=== PATIENT | female | born 1980 | race Caucasian/White ===

== ENCOUNTER → 2017-04-05 09:22 | Outpatient (REF) | payer BC, SELFPAY ==
[2017-04-05 12:11] LABS: Basophils # 0.1 K/mm3 (0-0.2); Basophils % 0.8 % (0.1-2.0); Eosinophils # 0.1 K/mm3 (0.0-0.4); Eosinophils % 0.9 % (0.1-12.0); Hemoglobin 13.7 g/dL (12.2-16.2); Lymphocytes # 2.8 K/mm3 (0.7-4.5); Lymphocytes % 34.3 K/mm3 (10-50); Mean Corpuscular HGB Conc 31.1 g/dL (31.8-35.4); Mean Platelet Volume 10.1 fl (7.4-10.4); Monocytes # 0.4 K/mm3 (0.1-1.0); Monocytes % 4.2 % (1.7-9.3); Neutrophils # 4.9 K/mm3 (1.8-7.8); Neutrophils % 59.8 % (37.0-80.0); Platelet Count 364 K/mm3 (142-424); Red Blood Count 4.89 M/mm3 (4.20-5.40); Red Cell Distribution Width 12.7 % (11.5-17.5); White Blood Count 8.2 K/mm3 (4.8-10.8)
[2017-04-05 12:17] LABS: Alanine Aminotransferase 32 U/L (12-78); Albumin Level 3.8 gm/dL (3.4-5.0); Albumin/Globulin Ratio 1.1 (1.1-1.8); Alkaline Phosphatase 56 U/L (46-116); Anion Gap 14.9 mEq/L (5-15); Aspartate Amino Transferase 21 U/L (15-37); Bilirubin,Total 0.5 mg/dL (0.2-1.0); Blood Urea Nitrogen 9 mg/dL (7-18); Calcium 9.3 mg/dL (8.5-10.1); Carbon Dioxide 23 mmol/L (21.0-32.0); Chloride 103 mmol/L (98-107); Chol/HDL Ratio 4.1 (1-3.5); Cholesterol 227 mg/dL (140-200); Creatinine,Serum 0.83 mg/dL (0.55-1.02); Estimated Glomerular Filt Rate > 60 ml/min (>60); Free T4 (Free Thyroxine) 1.11 ng/dl (0.76-1.46); GFR (African American) > 60 ML/MIN (>60); Globulin 3.4 gm/dl (1.3-3.2); Glucose 117 mg/dL (74-106); HDL Cholesterol 55 mg/dL (29-89); LDL Cholesterol 131 mg/dL (0-130); Potassium 4.9 mmoL/L (3.5-5.1); Sodium 136 mmol/L (136-145); Thyroid Stimulating Hormone 2.08 uIU/ml (0.358-3.740); Total Protein,Serum 7.2 gm/dL (6.4-8.2); Triglycerides 206 mg/dL (30-200); VLDL Cholesterol 41 mg/dL (0-40)
[2017-04-05 14:28] LABS: Hemoglobin A1C 7.4 % (0.0-7.0)
[2017-04-06 22:14] LABS: HIV Screen 4th Generation wRfx Non Reactive (Non Reactive); Microalbumin, Urine 7.2 ug/mL (Not Estab.)
== END ==
LOC: LAB 09:22
PROVIDERS: Visit Provider Nurse Practitioner Family
DX: R53.83 Other fatigue (principal); E11.9 Type 2 diabetes mellitus without complications; Z79.4 Long term (current) use of insulin; N92.6 Irregular menstruation, unspecified; Z20.6 Contact with and (suspected) exposure to human immunodeficiency virus [HIV]
CPT/HCPCS: 80053; 80061; 82043; 83036; 84439; 84443; 85025; 86703; G0432

== ENCOUNTER → 2017-08-08 13:30 | Outpatient (REF) | payer BC, SELFPAY ==
[2017-08-08 19:27] LABS: Hemoglobin A1C 7.2 % (0.0-7.0)
[2017-08-11 06:26] LABS: HIV Screen 4th Generation wRfx Non Reactive (Non Reactive); Vitamin D 25 Hydroxy 24.9 ng/mL (30.0-100.0)
== END ==
LOC: LAB 13:30
PROVIDERS: Visit Provider Nurse Practitioner Family
DX: Z20.6 Contact with and (suspected) exposure to human immunodeficiency virus [HIV] (principal); E11.9 Type 2 diabetes mellitus without complications; R53.83 Other fatigue
CPT/HCPCS: 82652; 83036; 86703; G0432

== ENCOUNTER → 2017-10-10 08:59 | Outpatient (REF) | payer BC, SELFPAY ==
[2017-10-10 13:25] LABS: Basophils % 0.6 % (0.1-2.0); Eosinophils # 0.2 K/mm3 (0.0-0.4); Eosinophils % 2.3 % (0.1-12.0); Hematocrit 41.4 % (37.0-47.0); Hemoglobin 13.4 g/dL (12.2-16.2); Lymphocytes # 2.7 K/mm3 (0.7-4.5); Lymphocytes % 40.8 K/mm3 (10-50); Mean Corpuscular HGB Conc 32.3 g/dL (31.8-35.4); Mean Corpuscular Hemoglobin 28.2 pg (27.0-31.2); Mean Corpuscular Volume 87.3 fl (81-99); Monocytes # 0.4 K/mm3 (0.1-1.0); Neutrophils # 3.3 K/mm3 (1.8-7.8); Neutrophils % 50.3 % (37.0-80.0); Platelet Count 271 K/mm3 (142-424); Red Blood Count 4.75 M/mm3 (4.20-5.40); Red Cell Distribution Width 13.1 % (11.5-17.5); White Blood Count 6.6 K/mm3 (4.8-10.8)
[2017-10-10 13:56] LABS: Alanine Aminotransferase 51 U/L (12-78); Albumin Level 3.5 gm/dL (3.4-5.0); Albumin/Globulin Ratio 1.1 (1.1-1.8); Alkaline Phosphatase 62 U/L (46-116); Anion Gap 14.3 mEq/L (5-15); Aspartate Amino Transferase 32 U/L (15-37); Bilirubin,Total 0.4 mg/dL (0.2-1.0); Blood Urea Nitrogen 10 mg/dL (7-18); Carbon Dioxide 24 mmol/L (21.0-32.0); Chloride 106 mmol/L (98-107); Chol/HDL Ratio 4.3 (1-3.5); Cholesterol 183 mg/dL (140-200); Creatinine,Serum 0.75 mg/dL (0.55-1.02); Estimated Glomerular Filt Rate 86 ml/min (>60); Free T4 (Free Thyroxine) 0.94 ng/dl (0.76-1.46); GFR (African American) 104 ML/MIN (>60); Globulin 3.2 gm/dl (1.3-3.2); Glucose 151 mg/dL (74-106); HDL Cholesterol 43 mg/dL (29-89); LDL Cholesterol 92 mg/dL (0-130); Potassium 4.3 mmoL/L (3.5-5.1); Sodium 140 mmol/L (136-145); Thyroid Stimulating Hormone 3.25 uIU/ml (0.358-3.740); Total Protein,Serum 6.7 gm/dL (6.4-8.2); Triglycerides 240 mg/dL (30-200); VLDL Cholesterol 48 mg/dL (0-40)
[2017-10-10 14:02] LABS: Hemoglobin A1C 7.4 % (0.0-7.0)
[2017-10-11 10:20] LABS: Microalbumin, Urine <3.0 ug/mL (Not Estab.)
== END ==
LOC: LAB 08:59
PROVIDERS: Visit Provider Nurse Practitioner Family
DX: E11.9 Type 2 diabetes mellitus without complications (principal)
CPT/HCPCS: 80053; 80061; 82043; 82570; 82652; 83036; 84439; 84443; 85025

== ENCOUNTER → 2018-01-14 10:28 | Outpatient (CLI) | payer BC, SELFPAY ==
[2018-01-14 12:44] LABS: Alanine Aminotransferase 73 U/L (12-78); Albumin Level 3.5 gm/dL (3.4-5.0); Albumin/Globulin Ratio 1.1 (1.1-1.8); Alkaline Phosphatase 63 U/L (46-116); Anion Gap 11.2 mEq/L (5-15); Aspartate Amino Transferase 60 U/L (15-37); Bilirubin,Total 0.6 mg/dL (0.2-1.0); Blood Urea Nitrogen 11 mg/dL (7-18); Calcium 9.1 mg/dL (8.5-10.1); Carbon Dioxide 29 mmol/L (21.0-32.0); Chloride 104 mmol/L (98-107); Chol/HDL Ratio 4.1 (1-3.5); Cholesterol 186 mg/dL (140-200); Creatinine,Serum 0.82 mg/dL (0.55-1.02); Estimated Glomerular Filt Rate 78 ml/min (>60); GFR (African American) 94 ML/MIN (>60); Globulin 3.2 gm/dl (1.3-3.2); Glucose 148 mg/dL (74-106); HDL Cholesterol 45 mg/dL (29-89); LDL Cholesterol 97 mg/dL (0-130); Potassium 4.2 mmoL/L (3.5-5.1); Sodium 140 mmol/L (136-145); Total Protein,Serum 6.7 gm/dL (6.4-8.2); Triglycerides 220 mg/dL (30-200); VLDL Cholesterol 44 mg/dL (0-40)
[2018-01-14 12:47] LABS: Hemoglobin A1C 7.5 % (0.0-7.0)
[2018-01-15 13:56] LABS: HIV Screen 4th Generation wRfx Non Reactive (Non Reactive)
== END ==
PROVIDERS: PCP Nurse Practitioner Family; Visit Provider Nurse Practitioner Family
DX: E11.9 Type 2 diabetes mellitus without complications (principal); Z20.6 Contact with and (suspected) exposure to human immunodeficiency virus [HIV]
CPT/HCPCS: 36415; 80053; 80061; 83036; 86703; G0432

== ENCOUNTER → 2018-05-30 14:12 | Outpatient (CLI) | payer BC, SELFPAY ==
[2018-05-30 15:19] LABS: Alanine Aminotransferase 63 U/L (12-78); Albumin Level 3.8 gm/dL (3.4-5.0); Albumin/Globulin Ratio 1.1 (1.1-1.8); Alkaline Phosphatase 78 U/L (46-116); Anion Gap 15.2 mEq/L (5-15); Aspartate Amino Transferase 45 U/L (15-37); Bilirubin,Total 0.4 mg/dL (0.2-1.0); Blood Urea Nitrogen 9 mg/dL (7-18); Calcium 9.3 mg/dL (8.5-10.1); Carbon Dioxide 26 mmol/L (21.0-32.0); Chloride 103 mmol/L (98-107); Chol/HDL Ratio 4.4 (1-3.5); Cholesterol 195 mg/dL (140-200); Creatinine,Serum 0.82 mg/dL (0.55-1.02); Estimated Glomerular Filt Rate 78 ml/min (>60); GFR (African American) 94 ML/MIN (>60); Globulin 3.5 gm/dl (1.3-3.2); Glucose 147 mg/dL (74-106); HDL Cholesterol 44 mg/dL (29-89); LDL Cholesterol 90 mg/dL (0-130); Potassium 4.2 mmoL/L (3.5-5.1); Sodium 140 mmol/L (136-145); T4 (Thyroxine) 10.3 ug/dl (4.7-13.3); Thyroid Stimulating Hormone 2.55 uIU/ml (0.358-3.740); Total Protein,Serum 7.3 gm/dL (6.4-8.2); Triglycerides 305 mg/dL (30-200); VLDL Cholesterol 61 mg/dL (0-40)
[2018-05-30 15:37] LABS: Basophils # 0.1 K/mm3 (0-0.2); Basophils % 0.9 % (0.1-2.0); Eosinophils # 0.3 K/mm3 (0.0-0.4); Eosinophils % 3.9 % (0.1-12.0); Hematocrit 41.7 % (37.0-47.0); Lymphocytes # 2.8 K/mm3 (0.7-4.5); Lymphocytes % 35.1 % (10-50); Mean Corpuscular HGB Conc 33.7 g/dL (31.8-35.4); Mean Corpuscular Volume 86.1 fl (81-99); Mean Platelet Volume 9.1 fl (7.4-10.4); Monocytes # 0.4 K/mm3 (0.1-1.0); Monocytes % 4.7 % (1.7-9.3); Neutrophils # 4.4 K/mm3 (1.8-7.8); Neutrophils % 55.5 % (37.0-80.0); Platelet Count 261 K/mm3 (142-424); Red Blood Count 4.84 M/mm3 (4.20-5.40); Red Cell Distribution Width 13.2 % (11.5-17.5); White Blood Count 7.9 K/mm3 (4.8-10.8)
[2018-05-30 18:23] LABS: Hemoglobin A1C 7.9 % (0.0-7.0)
[2018-05-30 19:34] LABS: HCG Qualitative, Serum Negative (Negative)
[2018-06-01 06:43] LABS: Creatinine, Urine 284.4 mg/dL (Not Estab.); Microalbumin, Urine 13.1 ug/mL (Not Estab.)
[2018-06-02 13:24] LABS: HIV Screen 4th Generation wRfx Non Reactive (Non Reactive)
== END ==
PROVIDERS: Visit Provider Nurse Practitioner Family
DX: E11.9 Type 2 diabetes mellitus without complications (principal); Z20.2 Contact with and (suspected) exposure to infections with a predominantly sexual mode of transmission; N92.6 Irregular menstruation, unspecified; Z79.4 Long term (current) use of insulin
CPT/HCPCS: 80053; 80061; 82043; 82570; 82652; 83036; 84436; 84443; 84703; 85025; 86703; G0432

== ENCOUNTER → 2018-11-03 13:59 | Outpatient (CLI) | payer BC, SELFPAY ==
[2018-11-05 11:13] LABS: HIV Screen 4th Generation wRfx Non Reactive (Non Reactive)
== END ==
PROVIDERS: Visit Provider Nurse Practitioner Family
DX: Z20.6 Contact with and (suspected) exposure to human immunodeficiency virus [HIV] (principal)
CPT/HCPCS: 86703; G0432

== ENCOUNTER → 2018-12-10 16:17 | Outpatient (CLI) | payer BC, SELFPAY ==
--- NOTE | 2018-12-10 16:18 | MM_ITS ---
PROCEDURE: MM DIG SCREENING MAMM BI W/CAD Patient Age:38Y CLINICAL INDICATION: Screening Baseline screening mammogram. No hormones but no new complaints.. Family history: Maternal aunt with breast cancer COMPARISON: No exams were available for comparison TECHNIQUE: Standard CC and MLO images were obtained. R2 CAD reviewed. FINDINGS: This is a baseline study with no previous for comparison. No dominant or suspicious mass in either breast.. Small scattered punctate calcifications appear benign and can be followed safely. Area of mild asymmetry of the left breast which seems to dissipate moving from cc to MLO view. No focal area of significant concern. Bilateral follow-up 1 year recommended IMPRESSION: No areas of significant concern on this baseline mammogram. Bilateral follow-up 1 year recommended and encouraged to further confirm baseline. BI-RAD Category: 1 Negative FOLLOW-UP: 1YR 1 Year Follow-up (A letter has been sent to the patient regarding results of the study.) Dictated by: Hunter Robledo MD 12/15/2018 10:51 Electronically signed by Hunter Robledo MD in [place] 12/15/2018 10:51
== END ==
PROVIDERS: PCP Nurse Practitioner Family; Visit Provider Nurse Practitioner Family
DX: Z12.39 Encounter for other screening for malignant neoplasm of breast (principal)
CPT/HCPCS: 77067

== ENCOUNTER → 2019-05-21 13:35 | Outpatient (CLI) | payer BC, SELFPAY ==
[2019-05-21 14:24] LABS: Basophils # 0.1 K/mm3 (0-0.2); Eosinophils # 0.2 K/mm3 (0.0-0.4); Eosinophils % 2.6 % (0.1-12.0); Hematocrit 41.5 % (37.0-47.0); Hemoglobin 13.4 g/dL (12.2-16.2); Lymphocytes # 2.5 K/mm3 (0.7-4.5); Lymphocytes % 39.2 % (10-50); Mean Corpuscular HGB Conc 32.4 g/dL (31.8-35.4); Mean Corpuscular Hemoglobin 28.6 pg (27.0-31.2); Mean Corpuscular Volume 88.3 fl (81-99); Mean Platelet Volume 9.1 fl (7.4-10.4); Monocytes # 0.3 K/mm3 (0.1-1.0); Monocytes % 4.9 % (1.7-9.3); Neutrophils # 3.3 K/mm3 (1.8-7.8); Neutrophils % 52.4 % (37.0-80.0); Platelet Count 301 K/mm3 (142-424); Red Blood Count 4.69 M/mm3 (4.20-5.40); White Blood Count 6.4 K/mm3 (4.8-10.8)
[2019-05-21 23:32] LABS: Hemoglobin A1C 8.3 % (4.0-6.0)
[2019-05-21 23:36] LABS: Chloride 103 mmol/L (98-107); Potassium 4.7 mmoL/L (3.5-5.1); Sodium 134 mmol/L (136-145)
[2019-05-21 23:38] LABS: Alanine Aminotransferase 50 U/L (12-78); Aspartate Amino Transferase 48 U/L (14-36); Blood Urea Nitrogen 9 mg/dl (7-17); Estimated Glomerular Filt Rate 111 ml/min (>60); GFR (African American) 134 ML/MIN (>60)
[2019-05-21 23:39] LABS: Albumin Level 4.2 g/dl (3.5-5.0); Albumin/Globulin Ratio 1.5 (1.1-1.8); Alkaline Phosphatase 78 U/L (38-126); Anion Gap 12.7 mEq/L (5-15); Bilirubin,Total 0.3 mg/dl (0.2-1.3); Calcium 9.6 mg/dl (8.4-10.2); Carbon Dioxide 23 mmol/L (22.0-30.0); Chol/HDL Ratio 4.7 (1-3.5); Cholesterol 206 mg/dl (140-200); Globulin 2.8 g/dL (1.3-3.2); Glucose 200 mg/dl (74-100); HDL Cholesterol 44 mg/dl (40-60); Triglycerides 370 mg/dl (30-150); VLDL Cholesterol 74 mg/dL (0-40)
[2019-05-21 23:50] LABS: Direct LDL Cholesterol 108.52 mg/dL (100-129)
[2019-05-21 23:57] LABS: T4 (Thyroxine) 11.6 ug/dl (5.53-11.0)
[2019-05-22 00:10] LABS: Thyroid Stimulating Hormone 1.91 uIU/mL (0.465-4.68)
[2019-05-22 12:03] LABS: Vitamin D 25 Hydroxy 46.7 ng/mL (30.0-100.0)
== END ==
PROVIDERS: Visit Provider Physician Assistant
DX: E11.9 Type 2 diabetes mellitus without complications (principal); Z79.4 Long term (current) use of insulin
CPT/HCPCS: 80053; 80061; 82652; 83036; 84436; 84443; 85025

== ENCOUNTER → 2019-06-04 10:10 | Outpatient (CLI) | payer BC, SELFPAY ==
[2019-06-04 16:01] LABS: HCG Qualitative, Serum Negative (Negative)
[2019-06-05 10:31] LABS: HIV Screen 4th Generation wRfx Non Reactive (Non Reactive)
== END ==
PROVIDERS: Visit Provider Physician Assistant
DX: Z20.6 Contact with and (suspected) exposure to human immunodeficiency virus [HIV] (principal); N91.2 Amenorrhea, unspecified
CPT/HCPCS: 36415; 84703; 86703; G0432

== ENCOUNTER → 2019-07-30 11:09 | Outpatient (CLI) | payer BC, SELFPAY ==
[2019-08-01 20:02] LABS: Covid-19 Nasal PCR Sendout Lex NOT DETECTED
--- NOTE | 2019-08-02 11:22 | PC.NURSE ---
Patient notified of negative COVID-19 test results via phone.
== END ==
PROVIDERS: Visit Provider Internal Medicine Adolescent Medicine
DX: Z03.818 Encounter for observation for suspected exposure to other biological agents ruled out (principal)
CPT/HCPCS: U0003

== ENCOUNTER → 2019-09-08 16:49 | Outpatient (CLI) | payer BC, SELFPAY ==
[2019-09-08 17:12] LABS: Basophils # 0.1 K/mm3 (0-0.2); Basophils % 0.8 % (0.1-2.0); Eosinophils # 0.2 K/mm3 (0.0-0.4); Eosinophils % 2.4 % (0.1-12.0); Hematocrit 40.6 % (37.0-47.0); Lymphocytes # 2.6 K/mm3 (0.7-4.5); Lymphocytes % 33.8 % (10-50); Mean Corpuscular HGB Conc 34.3 g/dL (31.8-35.4); Mean Corpuscular Volume 87.3 fl (81-99); Mean Platelet Volume 9.1 fl (7.4-10.4); Monocytes # 0.3 K/mm3 (0.1-1.0); Monocytes % 4.4 % (1.7-9.3); Neutrophils # 4.5 K/mm3 (1.8-7.8); Neutrophils % 58.6 % (37.0-80.0); Platelet Count 284 K/mm3 (142-424); Red Blood Count 4.66 M/mm3 (4.20-5.40); Red Cell Distribution Width 13.6 % (11.5-17.5); White Blood Count 7.7 K/mm3 (4.8-10.8)
[2019-09-08 19:24] LABS: Chloride 102 mmol/L (98-107); Potassium 4.5 mmoL/L (3.5-5.1); Sodium 133 mmol/L (136-145)
[2019-09-08 19:26] LABS: Blood Urea Nitrogen 11 mg/dl (7-17); Estimated Glomerular Filt Rate 93 ml/min (>60); GFR (African American) 112 ML/MIN (>60)
[2019-09-08 19:27] LABS: Alanine Aminotransferase 78 U/L (12-78); Albumin Level 4.2 g/dl (3.5-5.0); Albumin/Globulin Ratio 1.4 (1.1-1.8); Alkaline Phosphatase 96 U/L (38-126); Anion Gap 11.5 mEq/L (5-15); Aspartate Amino Transferase 94 U/L (14-36); Bilirubin,Total 0.7 mg/dl (0.2-1.3); Calcium 9.8 mg/dl (8.4-10.2); Carbon Dioxide 24 mmol/L (22.0-30.0); Globulin 3.1 g/dL (1.3-3.2); Glucose 199 mg/dl (74-100); Total Protein,Serum 7.3 g/dl (6.3-8.2)
[2019-09-08 19:32] LABS: Erythrocyte Sedimentation Rate 92 mm/hr (0-20)
[2019-09-08 19:33] LABS: C-Reactive Protein 3.2 mg/L (0-4)
[2019-09-09 11:18] LABS: Hemoglobin A1C 8.7 % (4.0-6.0)
[2019-09-10 10:14] LABS: Hep A Ab, IgM Negative (Negative); Hepatitis B Core Antibody IgM Negative (Negative); Hepatitis B Surface Antigen Negative (Negative)
[2019-09-10 11:14] LABS: Hepatitis C Antibody <0.1 s/co ratio (0.0-0.9)
[2019-09-10 13:11] LABS: Anti-Centromere B Antibodies <0.2 AI (0.0-0.9); Anti-Jo-1 <0.2 AI (0.0-0.9); Anti-Smith Antibody <0.2 AI (0.0-0.9); Antichromatin Antibodies <0.2 AI (0.0-0.9); Antiscleroderma-70 Antibodies <0.2 AI (0.0-0.9); RNP Antibodies 0.2 AI (0.0-0.9); Sjogren's Anti-SS-A <0.2 AI (0.0-0.9); Sjogren's Anti-SS-B <0.2 AI (0.0-0.9)
[2019-09-10 13:38] LABS: Anti-DNA (DS) Ab Qn <1 IU/mL (0-9)
[2019-09-10 14:57] LABS: RA Latex Turbid. 10.7 IU/mL (0.0-13.9)
[2019-09-12 06:50] LABS: Anti-Cyclic Citrullinated Pept 4 units (0-19)
== END ==
PROVIDERS: Visit Provider Physician Assistant
DX: M25.50 Pain in unspecified joint (principal); E11.9 Type 2 diabetes mellitus without complications
CPT/HCPCS: 80053; 80074; 83036; 85025; 85651; 86140; 86200; 86225; 86235; 86431

== ENCOUNTER → 2019-09-14 16:24 | Outpatient (CLI) | payer BC, SELFPAY ==
--- NOTE | 2019-09-14 16:45 | XR_ITS ---
PROCEDURE: XR HAND LT MIN 3V CLINICAL INDICATION: Heberden's nodes Pain COMPARISON: No exams were available for comparison FINDINGS: No fracture or dislocation. No lytic or blastic change. There is normal mineralization. The joint spaces are well-preserved. No significant degenerative/arthritic changes. No erosive changes evident. Other findings:None. IMPRESSION: Negative left hand Dictated by: Zen Weiner MD 09/16/2019 12:01 Electronically signed by Zen Weiner MD in [place] 09/16/2019 12:01
--- NOTE | 2019-09-14 16:45 | XR_ITS ---
PROCEDURE: XR HAND RT MIN 3V CLINICAL INDICATION: Heberdens nodes Pain COMPARISON: No exams were available for comparison FINDINGS: No fracture or dislocation. No lytic or blastic change. There is normal mineralization. The joint spaces are well-preserved. No significant degenerative/arthritic changes. No erosive changes evident. Other findings:None. IMPRESSION: Negative right hand Dictated by: Zen Weiner MD 09/16/2019 12:02 Electronically signed by Zen Weiner MD in [place] 09/16/2019 12:02
== END ==
PROVIDERS: PCP Physician Assistant; Visit Provider Physician Assistant
DX: M15.1 Heberden's nodes (with arthropathy) (principal)
CPT/HCPCS: 73130

== ENCOUNTER → 2019-10-21 16:53 | Outpatient (CLI) | payer BC, SELFPAY ==
[2019-10-21 17:35] LABS: Chloride 100 mmol/L (98-107); Potassium 4.4 mmoL/L (3.5-5.1); Sodium 135 mmol/L (136-145)
[2019-10-21 17:38] LABS: Anion Gap 14.4 mEq/L (5-15); Blood Urea Nitrogen 9 mg/dl (7-17); Calcium 9.4 mg/dl (8.4-10.2); Carbon Dioxide 25 mmol/L (22.0-30.0); Estimated Glomerular Filt Rate 110 ml/min (>60); GFR (African American) 133 ML/MIN (>60); Glucose 135 mg/dl (74-100)
== END ==
PROVIDERS: Visit Provider Physician Assistant
DX: E11.9 Type 2 diabetes mellitus without complications (principal); Z79.4 Long term (current) use of insulin
CPT/HCPCS: 80048; 83036

== ENCOUNTER → 2020-04-21 09:55 | Outpatient (CLI) | payer BC, SELFPAY ==
--- NOTE | 2020-04-21 09:56 | MM_ITS ---
PROCEDURE: MM DIG SCREENING MAMM BI W/CAD Digital Breast Tomosynthesis Included CLINICAL INDICATION: Routine Screening Mammogram There is a history of breast cancer in the patient's maternal aunt. COMPARISON: MG MM DIG SCREENING MAMM BI W/CAD from 12/10/2018 TECHNIQUE: Standard CC and MLO images and 3D Tomosynthesis was obtained. R2 CAD reviewed. FINDINGS: Moderate diffuse fibroglandular densities are seen throughout both breasts. There are couple of benign-appearing microcalcifications right breast. There is no suspicious lesion in either breast and no suspicious microcalcifications. IMPRESSION: Fibrofatty parenchyma with no suspicious lesions seen BI-RAD Category: 2 Benign Finding(s) FOLLOW-UP: 1YR 1 Year Follow-up (A letter has been sent to the patient regarding results of the study.) Dictated by: Dr. Barak Estevez MD 04/26/2020 08:36 Dr. Barak Estevez MD in [place] 04/26/2020 08:36
== END ==
PROVIDERS: PCP Nurse Practitioner Family; Visit Provider Obstetrics & Gynecology
DX: Z12.31 Encounter for screening mammogram for malignant neoplasm of breast (principal)
CPT/HCPCS: 77063; 77067

== ENCOUNTER → 2021-07-06 10:19 | Outpatient (CLI) | payer BC, SELFPAY ==
--- NOTE | 2021-07-06 10:20 | MM_ITS ---
PROCEDURE INFORMATION: Exam: MG Bilateral Screening 3D Mammography Exam date and time: 07/06/2021 10:28 AM Age: 40 years old Clinical indication: Screening examination; Family history of breast cancer in aunt TECHNIQUE: Imaging protocol: Bilateral Screening tomosynthesis and 2D mammography including computer-aided detection (CAD) when performed. COMPARISON: 1. MG MM DIG SCREENING MAMM BI W/CAD 04/21/2020 10:10 AM 2. MG MM DIG SCREENING MAMM BI W/CAD 12/10/2018 4:25 PM FINDINGS: MAMMOGRAPHY: Breast composition: The breast tissue is composed of scattered areas of fibroglandular density. Mass: None. Architectural distortion: None. Calcifications: No suspicious calcifications. Asymmetric density: None. Skin thickening: None. Axillary adenopathy: None. IMPRESSION: No mammographic evidence of malignancy. Annual screening is recommended unless otherwise clinically indicated. ASSESSMENT: BI-RADS Category 1: Negative
== END ==
PROVIDERS: PCP Nurse Practitioner Family; Visit Provider Obstetrics & Gynecology
DX: Z12.31 Encounter for screening mammogram for malignant neoplasm of breast (principal)
CPT/HCPCS: 77063; 77067

== ENCOUNTER → 2022-06-12 10:37 | Outpatient (CLI) | payer BC, SELFPAY ==
[2022-06-12 11:43] LABS: Hemoglobin A1C 6.1 % (4.0-6.0)
[2022-06-21 23:30] LABS: Fructosamine 235
== END ==
PROVIDERS: PCP Nurse Practitioner Family; Visit Provider Obstetrics & Gynecology
DX: Z34.90 Encounter for supervision of normal pregnancy, unspecified, unspecified trimester (principal); E11.9 Type 2 diabetes mellitus without complications
CPT/HCPCS: 36415; 82985; 83036; 87086

== ENCOUNTER → 2022-06-13 14:42 | Outpatient (CLI) | payer BC, MEDICAID, SELFPAY ==
[2022-06-13 16:08] LABS: HCG,Quantitative 9062 mIU/ml (0-5.42)
== END ==
PROVIDERS: PCP Nurse Practitioner Family; Visit Provider Obstetrics & Gynecology
DX: O20.9 Hemorrhage in early pregnancy, unspecified (principal)
CPT/HCPCS: 36415; 84702

== ENCOUNTER → 2022-06-15 16:12 | Outpatient (CLI) | payer BC, MEDICAID, SELFPAY ==
[2022-06-15 17:44] LABS: HCG,Quantitative 8951 mIU/ml (0-5.42)
== END ==
PROVIDERS: PCP Nurse Practitioner Family; Visit Provider Obstetrics & Gynecology
DX: O20.9 Hemorrhage in early pregnancy, unspecified (principal)
CPT/HCPCS: 36415; 84702

== ENCOUNTER → 2022-06-18 13:46 | Outpatient (CLI) | payer BC, MEDICAID, SELFPAY ==
--- NOTE | 2022-06-18 13:55 | US_ITS ---
FINAL REPORT CLINICAL HISTORY: for dates FINDINGS: Sonographic images of the pelvis were obtained. There is a 5.4 mm pole corresponding to 6 week 3 day gestation. No tone is identified. Yolk sac may be partially collapsed. There is a corpus luteum cyst on the left measures up to 1.8 cm. IMPRESSION: Findings consistent with 6 week 3 day gestation but no cardiac activity is identified. Recommend quantitative beta HCG and follow-up ultrasound. Reviewed, Interpreted and Dictated by Hung Joy MD Transcribed by Taylor De Souza Authenticated and [facility]
[2022-06-18 15:16] LABS: HCG,Quantitative 9588 mIU/ml (0-5.42)
== END ==
PROVIDERS: PCP Nurse Practitioner Family; Visit Provider Obstetrics & Gynecology
DX: O00.90 Unspecified ectopic pregnancy without intrauterine pregnancy (principal); O20.9 Hemorrhage in early pregnancy, unspecified
CPT/HCPCS: 36415; 76801; 84702

== ENCOUNTER → 2022-06-20 14:29 | Outpatient (CLI) | payer BC, SELFPAY ==
[2022-06-20 15:43] LABS: Basophils % 0.6 % (0.1-2.0); Eosinophils # 0.2 K/mm3 (0.0-0.4); Eosinophils % 2.8 % (0.1-12.0); Hematocrit 40.2 % (37.0-47.0); Hemoglobin 13.2 g/dL (12.2-16.2); Lymphocytes # 1.7 K/mm3 (0.7-4.5); Mean Corpuscular HGB Conc 32.9 g/dL (31.8-35.4); Mean Corpuscular Hemoglobin 30.8 pg (27.0-31.2); Mean Corpuscular Volume 93.5 fl (81-99); Mean Platelet Volume 9.2 fl (7.4-10.4); Monocytes # 0.6 K/mm3 (0.1-1.0); Neutrophils # 4.2 K/mm3 (1.8-7.8); Neutrophils % 62.6 % (37.0-80.0); Platelet Count 289 K/mm3 (142-424); Red Cell Distribution Width 13.1 % (11.5-17.5); White Blood Count 6.7 K/mm3 (4.8-10.8)
[2022-06-20 16:39] LABS: HCG,Quantitative 8653 mIU/ml (0-5.42)
[2022-06-22 08:56] LABS: Rubella Antibodies, IgG 1.98 index (Immune >0.99)
[2022-06-22 10:41] LABS: HIV Screen 4th Generation wRfx Non Reactive (Non Reactive); Rapid Plasma Reagin Ab Titer Non Reactive (NonRea<1:1)
[2022-06-23 01:10] LABS: Hepatitis B Surface Antigen Negative
[2022-06-23 01:11] LABS: Hepatitis C Antibody Non Reactive
[2022-06-23 01:12] LABS: Progesterone 6.2
== END ==
PROVIDERS: PCP Nurse Practitioner Family; Visit Provider Obstetrics & Gynecology
DX: O20.9 Hemorrhage in early pregnancy, unspecified (principal); Z34.90 Encounter for supervision of normal pregnancy, unspecified, unspecified trimester
CPT/HCPCS: 36415; 84144; 84702; 85025; 86593; 86703; 86762; 86850; 87340; 87380; G0432

== ENCOUNTER → 2022-06-25 09:06 | Outpatient (CLI) | payer BC, SELFPAY ==
--- NOTE | 2022-06-25 09:07 | US_ITS ---
FINAL REPORT TECHNIQUE: Sonographic images of the pelvis were obtained. CLINICAL HISTORY: 1 week repeat, no cardiac activity COMPARISON: Ultrasound performed 06/18/2022 FINDINGS: There is a gestational sac within the endometrial cavity with a pole. Nadine-rump length measures 5.4 mm corresponding with 6 weeks 3 days gestation. No cardiac activity is identified. There is a small yolk sac with abnormal appearance. Mean gestational sac measures 1.7 cm consistent with 6 weeks 4 days which is essentially unchanged in size. Nabothian cysts are seen in the cervix. Cervix is otherwise intact. The left ovary measures 2.8 x 2.6 x 2.2 cm with a 1.9 cm cyst. Blood flow is present. The right ovary measures 1.6 x 2.2 x 1.5 cm. Blood flow is present. IMPRESSION: Gestational sac with pole. No cardiac activity identified and no change in size of gestational sac in 7 days time most consistent with failed . Reviewed, Interpreted and Dictated by Suzy Heard MD Transcribed by Gabrielle Felix Authenticated and [facility]
[2022-06-25 12:26] LABS: Basophils # 0.1 K/mm3 (0-0.2); Basophils % 0.8 % (0.1-2.0); Eosinophils # 0.2 K/mm3 (0.0-0.4); Eosinophils % 2.6 % (0.1-12.0); Hematocrit 42.9 % (37.0-47.0); Hemoglobin 13.9 g/dL (12.2-16.2); Lymphocytes # 2.4 K/mm3 (0.7-4.5); Lymphocytes % 29.4 % (10-50); Mean Corpuscular HGB Conc 32.5 g/dL (31.8-35.4); Mean Corpuscular Volume 92.5 fl (81-99); Mean Platelet Volume 8.7 fl (7.4-10.4); Monocytes # 0.4 K/mm3 (0.1-1.0); Monocytes % 4.7 % (1.7-9.3); Neutrophils # 5.1 K/mm3 (1.8-7.8); Neutrophils % 62.4 % (37.0-80.0); Platelet Count 335 K/mm3 (142-424); Red Blood Count 4.64 M/mm3 (4.20-5.40); White Blood Count 8.1 K/mm3 (4.8-10.8)
[2022-06-25 12:58] LABS: Chloride 103 mmol/L (98-107); Potassium 4.2 mmoL/L (3.5-5.1); Sodium 136 mmol/L (136-145)
[2022-06-25 13:00] LABS: Blood Urea Nitrogen 8 mg/dl (7-17); Estimated Glomerular Filt Rate 109 ml/min (>60); GFR (African American) 132 ML/MIN (>60)
[2022-06-25 13:01] LABS: Alanine Aminotransferase 24 U/L (12-78); Albumin Level 4.3 g/dl (3.5-5.0); Albumin/Globulin Ratio 1.5 (1.1-1.8); Alkaline Phosphatase 68 U/L (38-126); Anion Gap 11.2 mEq/L (5-15); Aspartate Amino Transferase 29 U/L (14-36); Bilirubin,Total 0.4 mg/dl (0.2-1.3); Calcium 9.3 mg/dl (8.4-10.2); Carbon Dioxide 26 mmol/L (22.0-30.0); Globulin 2.9 g/dL (1.3-3.2); Glucose 115 mg/dl (74-100); Total Protein,Serum 7.2 g/dl (6.3-8.2)
== END ==
PROVIDERS: PCP Nurse Practitioner Family; Visit Provider Obstetrics & Gynecology
DX: O20.9 Hemorrhage in early pregnancy, unspecified (principal); O02.1 Missed abortion
CPT/HCPCS: 36415; 76801; 80053; 85025; 86850

== ENCOUNTER 2022-06-26 07:19 | Day surgery (SDC) | payer BC, MEDICAID, SELFPAY ==
[2022-06-26] VITALS (14 sets, daily range): BP systolic 127–148; BP diastolic 69–87; PULSE 72–93; RESP 16–18; TEMP 36.1–43; O2SAT 92–99; BMI 32.0
--- NOTE | 2022-06-26 | US_ITS ---
FINAL REPORT CLINICAL HISTORY: PATIENT IN OR FOR a D & C Limited study in OR COMPARISON: 06/25/2022 FINDINGS: Ultrasound was provided in the OR during D & C. Limited images of the uterus were obtained. Fluid is seen within the endometrial canal. Free fluid is identified. No pole is seen. IMPRESSION: Limited intraoperative ultrasound. Reviewed, Interpreted and Dictated by Suzy Heard MD Transcribed by Taylor De Souza Authenticated and [facility]
[2022-06-26 07:53] LABS: POC Glucose,Bedside 111 (70-110)
--- NOTE | 2022-06-26 08:21 | EXP.ANES.CKL ---
[facility] Disclaimer: The information contained in this section may have been updated after the patient was seen, as this information can be updated by other users. 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 (Updated 06/26/22 @ 07:53 by Kristy Alonso RN) Allergies Arthritis Asthma Blood transfusion declined because patient is [employer] Bronchitis Diabetes Eczema History of COVID-19 History of gastroesophageal reflux (GERD) Hypertension IBS (irritable bowel syndrome) Migraine Pancreatitis Surgical History Hx of section Hx of cholecystectomy Family History (Updated 06/26/22 @ 07:53 by Kristy Alonso RN) Mother Cancer Father Diabetes Pacemaker Social History (Updated 06/26/22 @ 07:54 by Kristy Alonso RN) Smoking Status: Never smoker alcohol intake: never substance use type: denies use current occupational status: unemployed Travel in the last 8 weeks: None household members: spouse and children housing: house caffeine: No [facility] Anesthesia Checklist Patient Identification Patient Identification: Arm Band and Verbal (Name & ) Structural Data Admitted From: Home Planned Operative Procedure/s: Hystroscopy D&C Verified Documents: Surgical Consent NPO Status Verified Time NPO: 00:00 Chart Verification Results Verified: CBC and BMP Additional verifications Anesthesia Reactions: No Hx Blood Transfusions: No Blood Transfusion Reaction: No Airway Assessment C-Spine Mobility Assessed: Yes TMJ Mobility Assessed: Yes Dentition: Good Dentition Neurological Assessment Level of Consciousness: Awake, Alert and Appropriate Anesthesia Plan Anesthesia Risk discussed: Yes ASA Class: III Anesthesia Type: General
--- NOTE | 2022-06-26 09:51 | SUR.OPER ---
0940- Family updated in waiting room by joey Camacho and consented for hysteroscopy. 0945- Per 's verbal order, Salena with radiology in OR for ultrasound.
--- NOTE | 2022-06-26 10:19 | EXP.ANES.CKL ---
[facility] Disclaimer: The information contained in this section may have been updated after the patient was seen, as this information can be updated by other users. 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 (Updated 06/26/22 @ 07:53 by Kristy Alonso RN) Allergies Arthritis Asthma Blood transfusion declined because patient is [employer] Bronchitis Diabetes Eczema History of COVID-19 History of gastroesophageal reflux (GERD) Hypertension IBS (irritable bowel syndrome) Migraine Pancreatitis Surgical History Hx of section Hx of cholecystectomy Family History (Updated 06/26/22 @ 07:53 by Kristy Alonso RN) Mother Cancer Father Diabetes Pacemaker Social History (Updated 06/26/22 @ 08:39 by Kristy Alonso RN) Smoking Status: Never smoker alcohol intake: never substance use type: denies use current occupational status: unemployed Travel in the last 8 weeks: None household members: spouse and children housing: house caffeine: No [facility] Anesthesia Checklist Patient Identification Patient Identification: Arm Band and Verbal (Name & ) Structural Data Admitted From: Home Planned Operative Procedure/s: Hystroscopy D&C Verified Documents: Surgical Consent NPO Status Verified Time NPO: 00:00 Chart Verification Results Verified: CBC and BMP Additional verifications Anesthesia Reactions: No Hx Blood Transfusions: No Blood Transfusion Reaction: No Airway Assessment C-Spine Mobility Assessed: Yes TMJ Mobility Assessed: Yes Dentition: Good Dentition Neurological Assessment Level of Consciousness: Awake, Alert and Appropriate Anesthesia Plan Anesthesia Risk discussed: Yes ASA Class: III Anesthesia Type: General
--- NOTE | 2022-06-26 10:20 | EXP.ANES.I ---
[facility] Anesthesia Record Part I Anesthesia Record I Intake, IV Amount: 1,000 Estimated blood loss (mL): 10 Urine output (mL): 0 SaO2: 92 Pulse Rate: 72 Respiratory Rate: 16 Temperature: 98.4 F Patient is:: Drowsy and Stable Stable to PACU at:: 10:18
[2022-06-26 10:28] LABS: POC Glucose,Bedside 120 (70-110)
--- NOTE | 2022-06-26 10:32 | EXP.OP.NOTE ---
Date of procedure: 06/26/22 Pre-op Diagnosis:: Missed , 6 weeks Post-op Diagnosis:: Same Procedure performed:: 1. Cervical dilation 2. Diagnostic Hysteroscopy 3. Transabdominal pelvic ultrasound (per radiology top hat body maker, intra-op) Surgeon:: Ruba Zimmer MD Clinic Manager(s):: None BURIAL NEEDS SALESPERSON:: Neptali Freed Anesthesia: GETA Estimated blood loss (mL): 5 Operative findings:: Cervical stenosis Uterine perforation Operative note:: The patient was taken to the OR and general anesthesia administered without difficulty. She was prepped and draped in lithotomy position. Hogan retractors were used anterior and posterior in the vagina to visualize the cervix, which was very posterior and displaced at an extreme angle. A single tooth tenaculum placed on the anterior lip of the cervix, but the ability to straighten the uterus was still notably limited. Neither the smallest Sears dilator nor the uterine sound were able to pass through the cervix, with no known or apparent reason for this stenosis. Pediatric dilators were opened, and cervical dilation was begun using a lacrimal duct probe. The cervix appeared to begin to dilate anteriorly, and the Sears dilators were eventually able to pass, with the exception of the largest 2 sizes. At this time, there was concern for a potential false passage and her was asked to sign and ammended surgical consent form, for the addition of a diagnostic hysteroscopy to be performed. Ultrasound assistance was also called for into the operating room. The hysteroscope was advanced through the cervix, but the cavity did not expand appropriately with normal saline and a large fluid loss was noted immediately (1300cc). The hysteroscope was removed based on a suspected uterine perforation. At this time, the top hat body maker and ultrasound machine arrived and trans-abdominal ultrasound was performed. The gestational sac and pole were identified within the uterus, and a large amount of fluid was visualized within the pelvis, confirming a uterine perforation. The plan for suction curettage was aborted at this time. Vital signs remained stable and she had minimal bleeding from the attempted cervical dilation. The tenaculum was removed from the cervix and retractors removed from the vagina. She was taken out of lithotomy position, awakened from anesthesia and taken to the PACU in stable condition. She will be counseled in recovery once awake for alternative management of this miscarriage with PO Cytotec given the surgical limitations posed by uterine position, cervical stenosis and subsequent uterine perforation. EBL: 5cc Condition: stable Disposition: PACU Specimens:: None Complications:: Uterine perforation
--- NOTE | 2022-06-26 10:33 | SUR.OPER ---
0955- Per , at bedside.
--- NOTE | 2022-06-27 07:15 | P.PNANES_ITS ---
[facility] Anesthesia Record Part II Anesthesia Record Part II Discharge Time: 10:58 Destination: Surgical Day Care (OP Surgery) PACU nurse assessment reviewed?: Yes Patient Condition:: Good Anesthesia Complications:: None Swallowing reflex intact?: Yes Cyanosis?: No Blood Pressure: 142/69 Pulse Rate: 93 Temperature: 97 F Mental Status: Alert & Oriented Pain level:: 0 Nausea and/or vomitting:: None Intake, IV Amount: 0
[2022-06-27 07:16] VITALS: BP 142/69; PULSE 93; TEMP 36.1
== END 2022-06-26 12:25 | disposition home or self-care (01) ==
LOC: OR 11:20 → RAD 11:32
PROVIDERS: PCP Nurse Practitioner Family; Visit Provider Obstetrics & Gynecology
PROC: (CPT 58555; principal; 2022-06-26 08:30)
DX: O02.1 Missed abortion (principal); Z3A.01 Less than 8 weeks gestation of pregnancy; Z79.899 Other long term (current) drug therapy; E11.9 Type 2 diabetes mellitus without complications
CPT/HCPCS: 58555; 76856; 82962; 96374; J2405

== ENCOUNTER → 2022-06-29 10:40 | Outpatient (CLI) | payer BC, MEDICAID, SELFPAY ==
--- NOTE | 2022-06-29 10:40 | US_ITS ---
FINAL REPORT CLINICAL HISTORY: incomplete miscarriage, COMPARISON: 06/26/2022 FINDINGS: Technique: Transabdominal images of the pelvis were obtained. Findings: The uterus measures 11.3 x 5.3 x 5.3 cm. There is hypoechogenicity within the endometrial cavity lower uterine segment. On color images there is no internal blood flow within this. Differential consideration includes hematoma or blood product or retained products of conception. The cervix is unremarkable. The left ovary measures 1.6 x 2.9 x 2.3 cm and is normal. Of right ovary measures 1.9 x 1.6 x 2.8 cm and is normal. There is no free fluid seen. IMPRESSION: Hypoechogenicity lower uterine segment without blood flow. This could be blood products or retained products. Recommend correlation with beta hCG levels. Reviewed, Interpreted and Dictated by Suzy Heard MD Transcribed by Diann Franco Authenticated and [facility]
== END ==
PROVIDERS: PCP Nurse Practitioner Family; Visit Provider Obstetrics & Gynecology
DX: O03.4 Incomplete spontaneous abortion without complication (principal)
CPT/HCPCS: 76816

== ENCOUNTER → 2022-07-03 13:26 | Outpatient (CLI) | payer BC, MEDICAID, SELFPAY ==
--- NOTE | 2022-07-03 13:34 | US_ITS ---
FINAL REPORT CLINICAL HISTORY: missed ab FINDINGS: Sonographic images of the pelvis were obtained. The endometrium measures 1.2 cm in thickness. No debris is seen within the endometrial cavity. No definite retained products of conception are identified. The ovaries are unremarkable. IMPRESSION: No definite retained products of conception. Reviewed, Interpreted and Dictated by Hung Joy MD Transcribed by Taylor De Souza Authenticated and [facility]
== END ==
PROVIDERS: PCP Nurse Practitioner Family; Visit Provider Obstetrics & Gynecology
DX: O02.1 Missed abortion (principal)
CPT/HCPCS: 76816

== ENCOUNTER → 2022-07-11 10:52 | Outpatient (CLI) | payer BC, MEDICAID, SELFPAY ==
--- NOTE | 2022-07-11 10:52 | MM_ITS ---
PROCEDURE INFORMATION: Exam: MG Bilateral Screening 3D Mammography Exam date and time: 07/11/2022 11:02 AM Age: 41 years old Clinical indication: Screening. A maternal aunt had breast cancer. TECHNIQUE: Imaging protocol: Bilateral Screening tomosynthesis and 2D mammography including computer-aided detection (CAD) when performed. COMPARISON: 1. MG MM DIG SCREENING MAMM BI W/CAD 07/06/2021 10:28 AM 2. MG MM DIG SCREENING MAMM BI W/CAD 04/21/2020 10:10 AM 3. MG MM DIG SCREENING MAMM BI W/CAD 12/10/2018 4:25 PM FINDINGS: MAMMOGRAPHY: Breast composition: There are scattered areas of fibroglandular density. Mass: None. Architectural distortion: None. Calcifications: No suspicious calcifications. Asymmetric density: None. Skin thickening: None. Axillary adenopathy: None. IMPRESSION: No mammographic evidence of malignancy. Annual screening is recommended unless otherwise clinically indicated. ASSESSMENT: BI-RADS Category 1: Negative
== END ==
PROVIDERS: PCP Nurse Practitioner Family; Visit Provider Obstetrics & Gynecology
DX: Z12.31 Encounter for screening mammogram for malignant neoplasm of breast (principal)
CPT/HCPCS: 77063; 77067

== ENCOUNTER 2024-04-22 12:45 | Emergency (ER) | payer OTHER, MEDICAID, SELFPAY ==
[2024-04-22 13:00] VITALS: BP 120/71; PULSE 79; RESP 18; TEMP 36.7; O2SAT 98; BMI 30.3
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
--- NOTE | 2024-04-22 13:31 | EXP.UTC ---
Discharge Plan Disposition Patient Disposition: Home, Self-Care Condition: Good Prescriptions Prescriptions: No Action (DME) insulin syringe-needle U-100 1 mL 31 gauge x 5/16 syringe See Rx Instructions .ROUTE .MEDSUPPLY Qty: 10 Patient Comments: USE DIRECTED Rx Instructions: As directed oxycodone 10 mg tablet 10 mg PO Q8H PRN (Reason: pain) Qty: 25 0RF olopatadine 0.1 % drops 1 drp OPHTHALMIC DAILY aspirin 81 mg tablet,delayed release (DR/EC) 81 mg PO DAILY cetirizine [Zyrtec] 10 mg tablet 10 mg PO DAILY PRN (Reason: allergies) misoprostol [Cytotec] 200 mcg tablet 600 mcg PO Q6H 7 Days Qty: 84 0RF fluticasone propionate 50 mcg/actuation [place],Suspension 1 spray INTRANASAL DAILY Rx Instructions: administer into each nostril labetalol 200 mg tablet 200 mg PO BID Rx Instructions: Take 1 tablet by mouth twice daily insulin glargine [Lantus U-100 Insulin] 100 unit/mL solution 30 unit SQ HS Rx Instructions: INJECT 20 UNITS SUBCUTANEOUSLY EVERY DAY AT BEDTIME glipizide 10 mg tablet extended release 24hr 10 mg PO DAILY metformin 1,000 mg tablet 1,000 mg PO BID mupirocin 2 % ointment 1 applic TOPICAL BID insulin lispro 100 unit/mL solution 15 unit SQ TID (DME) insulin syringe-needle U-100 [BD Insulin Syringe Ultra-Fine] 0.5 mL 31 gauge x 5/16 syringe See Rx Instructions MISCELLANEOUS Rx Instructions: As directed (DME) pen needle, diabetic [BD Ultra-Fine Short Pen Needle] 31 gauge x 5/16 needle MISCELLANEOUS Rx Instructions: As directed emtricitabine-tenofovir (TDF) [Truvada] 200-300 mg tablet 1 tab PO DAILY DHA 200 mg capsule 200 mg PO DAILY ibuprofen 600 mg tablet 600 mg PO Q8H PRN (Reason: pain) Qty: 30 0RF Referrals Follow up/Referrals: Genesis Noyola APRN [Primary Care Provider] - See instructions Activity Restrictions/Add. Instructions Additional Instructions/Restrictions: Ice as needed [employer] wrap Follow-up with PCP If symptoms worsen or do not improve follow-up with Ortho Motrin or Tylenol as needed for pain Clinical Impressions Clinical Impression: Hematoma Instructions Patient Instructions: DI for Hematoma (Bruise) Print Language Print Language: [place]ralt[place] Discharge ED Provider: Tonia ([facility])[place] [facility] [place] General Stated complaint: knot on right leg Mode of Arrival: Ambulatory Source of Information: Patient Limitations: No Limitations Time Seen by Provider: 04/22/24 13:06 Description of Symptoms (Recalled from Triage Doc. by RN): PATIENT C/O KNOT TO SIDE OF RIGHT KNEE THAT IS TENDER TO TOUCH. SHE STATES A WOODEN POST HIT HER IN THE KNEE THIS PAST WEEKEND. HEENT Symptoms (Recalled from RN notes): No Resp Symptoms (Recalled from RN notes): No Skin Symptoms (Recalled from RN notes): No MS Symptoms (Recalled from RN notes): Yes Functional Status (Recalled from RN notes): WNL History of Present Illness Provider Complaint: 43-year-old female presents for pain in the rt knee. Patient states this past weekend she was hit by a wooden post on the outside lateral part of her knee. Patient states now there is a knot there and it is tender to touch Related Data Home Medications ?Medication ?Instructions ?Recorded ?Confirmed olopatadine 0.1 % eye drops 1 drp ophthalmic (eye) DAILY . 04/03/19 07/04/22 insulin syringe-needle U-100 1 mL #10 ea 04/20/19 07/04/22 31 gauge x 08/14 aspirin 81 mg tablet,delayed 81 mg PO DAILY . 06/12/22 07/04/22 release cetirizine 10 mg tablet (Zyrtec) 10 mg PO DAILY PRN allergies 06/12/22 07/04/22 docosahexaenoic acid 200 mg 200 mg PO DAILY suppement 06/26/22 07/04/22 capsule ( DHA) emtricitabine 200 mg-tenofovir 1 tab PO DAILY . 06/26/22 07/04/22 disoproxil fumarate 300 mg tablet (Truvada) fluticasone propionate 50 1 spray intranasal DAILY allergies 06/26/22 07/04/22 mcg/actuation nasal spray,suspension glipizide 10 mg tablet, extended 10 mg PO DAILY Diabetes 06/26/22 04/22/24 release 24 hr insulin glargine 100 unit/mL 30 unit SQ HS Diabetes 06/26/22 07/04/22 subcutaneous solution (Lantus U-100 Insulin) insulin lispro 100 unit/mL 15 unit SQ TID Diabetes 06/26/22 07/04/22 subcutaneous solution insulin syringe-needle U-100 0.5 06/26/22 07/04/22 mL 31 gauge x 5/16 (BD Insulin Syringe Ultra-Fine) labetalol 200 mg tablet 200 mg PO BID bp 06/26/22 07/04/22 metformin 1,000 mg tablet 1,000 mg PO BID Diabetes 06/26/22 04/22/24 mupirocin 2 % topical ointment 1 applic topical BID . 06/26/22 07/04/22 pen needle, diabetic 31 gauge x 06/26/22 07/04/22 5/16 (BD Ultra-Fine Short Pen Needle) Previous Rx's ?Medication ?Instructions ?Recorded ibuprofen 600 mg tablet 600 mg PO Q8H PRN pain #30 tabs 06/26/22 misoprostol 200 mcg tablet 600 mcg (3 x 200 mcg) PO Q6H 7 06/29/22 (Cytotec) days #84 tabs oxycodone 10 mg tablet 10 mg PO Q8H PRN pain #25 tabs 06/29/22 Allergies Allergy/AdvReac Type Severity Reaction Status Date / Time hydrocodone Allergy Mild Nausea, Verified 07/04/22 08:44 Diarrhea Worker's Comp Is this a Worker's Comp case?: No [facility] Disclaimer: The information contained in this section may have been updated after the patient was seen, as this information can be updated by other users. 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) Smoking Status: Never smoker alcohol intake: never substance use type: denies use current occupational status: unemployed Travel in the last 8 weeks: None household members: spouse and children housing: house caffeine: No Have you lived/traveled outside [place] in past 30 days?: No Contact w/someone who lives/traveled outside [place] past 30 days?: No Exposure to someone with infectious disease in past 14 days?: No Do you have a fever (greater than 100.4 F or 38 C)?: No Have you tested positive for COVID-19: No Exposed to someone with COVID-19 in past 14 days?: No Do you have a sore throat?: No Do you have a cough?: No Do you have any weakness?: No Do you have any diarrhea?: No Are you experiencing any unusual bleeding?: No Do you have any muscle aches/pain?: Yes Do you have any abdominal pain?: No Are you experiencing loss of taste or smell?: No ROS Obtained: Yes Systems reviewed as appropriate & no additional complaints except as documented Musculoskeletal Musculoskeletal: Reports system reviewed and no additional complaints, except as documented, Reports as per HPI, Reports arthralgias and Reports other Physical Exam General General appearance: alert and in no apparent distress Respiratory Respiratory exam: Present normal lung sounds bilaterally Cardiovascular Cardiovascular exam: Present regular rate and normal rhythm Extremities Exam Extremities exam: Present tenderness and normal capillary refill Expanded Lower Extremity Exam Right: Leg image: 1. Bruise, palpable raised area Knee exam: Present tenderness and ecchymosis Neurological Exam Neurological exam: Present alert and oriented X3 Lymphatic Lymphatic Findings: no adenopathy Medical Decision Making Medical Records Medical records reviewed: Yes I reviewed the patient's medical records. Screening: Per USPSTF and CDC recommendations, given the prevalence of disease in our region, it is our hospital?s policy to screen for HIV and viral Hepatitis for all patients aged 18 and over and those with ongoing risk factors. [place] Inquiry Pt receiving controlled substance: No Vital Signs: 04/22/24 13:00 Temperature 98.1 F Temperature Source Oral Pulse Rate [Left Brachial] 79 Respiratory Rate 18 Blood Pressure [Left Arm] 120/71 Blood Pressure Mean [Left Arm] 87 Blood Pressure Source [Left Arm] Automatic Cuff Blood Pressure Position [Left Arm] Sitting 02 Sat by Pulse Oximetry 98 Oxygen Delivery Method Room Air Orders (Tests/Meds): ORDERS Category Date Time Status XR knee RT 3V Stat Exams 04/22/24 13:06 Ordered Radiology Data #1: Image(s): Knee Image Reviewed: Yes I reviewed the patient's radiology image Preliminary Findings: Normal/NAD
[2024-04-22 14:04] VITALS: BP 120/71; PULSE 79; RESP 18; TEMP 36.7; O2SAT 98
== END 2024-04-22 14:07 | disposition home or self-care (01) ==
PROVIDERS: Emergency Provider Nurse Practitioner Family; PCP Nurse Practitioner Family
DX: S80.11XA Contusion of right lower leg, initial encounter (principal)
CPT/HCPCS: 73562; 99212; G0381